=== PATIENT | female | born 1980 ===

== ENCOUNTER 2016-07-22 11:21 | Emergency (ER) | payer OTHER ==
[2016-07-22 11:30] VITALS: BP 96/65; PULSE 69; RESP 16; TEMP 98; O2SAT 100
[2016-07-22 11:31] VITALS: BMI 21.1
--- NOTE | 2016-07-22 12:10 | ED PDOC ---
Upper Extremity Pain/Injury Time Seen by Provider: 07/22/16 11:36 Chief Complaint (Nursing): Upper Extremity Problem/Injury History Per: Patient (presents for treatment of pain along with intermittent numbness and tingling of LUE. Patient has had a recent MRI of the c-spine that reportedly shows herniated disc(s). Patient states that a pain medicine that was given by Dr. Carty is not helping. She also states that she has seen a specialist and that she was told that she needed to have surgery done.), Family History/Exam Limitations: no limitations Onset/Duration Of Symptoms: Gradual Current Symptoms Are (Timing): Still Present Quality: "Pain" Severity: Moderate Past Medical History Reviewed: Historical Data, Nursing Documentation, Vital Signs Vital Signs: Last Vital Signs Temp 98.0 F 07/22/16 11:28 Pulse 69 07/22/16 11:28 Resp 16 07/22/16 11:28 BP 96/65 L 07/22/16 11:28 Pulse Ox 100 07/22/16 11:28 - Medical History PMH: No Chronic Diseases - Surgical History Surgical History: No Surg Hx - Family History Family History: States: No Known Family Hx - Living Arrangements Living Arrangements: With Family - Social History Current smoker - smoking cessation education provided: No - Home Medications Home Medications: Ambulatory Orders Medication Instructions Recorded traMADol [Ultram] 50 mg PO QID #10 tab 07/22/16 - Allergies Allergies/Adverse Reactions: Allergies Allergy/AdvReac Type Severity Reaction Status Date / Time No Known Allergies Allergy Verified 07/22/16 11:48 Review of Systems ROS Statement: Except As Marked, All Systems Reviewed And Found Negative Constitutional: Negative for: Fever, Chills Neurological: Positive for: Numbness (and tingling in the LUE intermittently) Physical Exam - Reviewed Nursing Documentation Reviewed: Yes Vital Signs Reviewed: Yes - Physical Exam Appears: Positive for: Well, Non-toxic, No Acute Distress Head Exam: Positive for: ATRAUMATIC, NORMAL INSPECTION, NORMOCEPHALIC Skin: Positive for: Normal Color, Warm, DRY Eye Exam: Positive for: Normal appearance, EOMI ENT: Positive for: Normal ENT Inspection Neck: Positive for: Normal, Painless ROM Cardiovascular/Chest: Positive for: Regular Rate, Rhythm Respiratory: Positive for: CNT, Normal Breath Sounds Gastrointestinal/Abdominal: Positive for: Normal Exam, Bowel Sounds, Soft Back: Positive for: Normal Inspection Extremity: Positive for: Normal ROM Neurologic/Psych: Positive for: Alert, Oriented - Laboratory Results Result Diagrams: 07/22/16 12:11 07/22/16 12:11 - ECG O2 Sat by Pulse Oximetry: 100 Medical Decision Making Medical Decision Making: Case d/w PMD Dr. Carty. He says he wants her to go to his office within the next 2 days. Disposition - Clinical Impression Clinical Impression: Cervical radicular pain - Patient ED Disposition Is Patient to be Admitted: No Doctor Will See Patient In The: Office Counseled Patient/Family Regarding: Diagnosis, Need For Followup - Disposition Referrals: Efe Carty MD [Family Provider] - Disposition: Routine/Home Disposition Time: 15:04 Condition: IMPROVED Prescriptions: traMADol [Ultram] 50 mg PO QID #10 tab Instructions: Cervical Radiculopathy (ED) Print Language: [place] - POA Present On Arrival: None
[2016-07-22 12:30] LABS: BASO % 0.3 % (0.0-2.0); EOS # 0.1 K/uL (0.0-0.7); EOS % 2.8 % (0.0-4.0); HEMATOCRIT 38.1 % (34.0-47.0); LYMPH # 2.1 K/uL (1.0-4.3); LYMPH % 39.5 % (20.0-40.0); MEAN CELL VOLUME 86.7 fl (81.0-99.0); MEAN CORPUSCULAR HEMOGLOBIN 29.3 pg (27.0-31.0); MEAN CORPUSCULAR HGB CONC 33.8 g/dL (33.0-37.0); MEAN PLATELET VOLUME 7.3 fl (7.2-11.7); MONO # 0.5 K/uL (0.0-0.8); MONO % 8.7 % (0.0-10.0); NEUT # 2.6 K/uL (1.8-7.0); NEUT % 48.7 % (50.0-75.0); NRBC % 0.2 % (0.0-0.0); RED CELL DISTRIBUTION WIDTH 13.8 % (11.5-14.5); WHITE BLOOD COUNT 5.3 K/uL (4.8-10.8)
[2016-07-22 12:38] LABS: BLOOD UREA NITROGEN 12 mg/dl (7-17); CALCIUM 9.3 mg/dL (8.4-10.2); CARBON DIOXIDE 24 mmol/L (22-30); CHLORIDE 107 mmol/L (98-107); GFR AFRICAN-AMERICAN > 60; GLUCOSE,RANDOM 89 mg/dL (65-105); POTASSIUM 4.1 MMOL/L (3.6-5.0); SODIUM 138 mmol/l (132-148)
== END 2016-07-22 15:27 | disposition home or self-care (01) ==
LOC: H.ER 11:21
DX: M54.12 Radiculopathy, cervical region (principal); R20.2 Paresthesia of skin

== ENCOUNTER 2016-07-24 10:25 | Inpatient (IN) | payer OTHER ==
[2016-07-24 10:32] VITALS: BMI 19.2
--- NOTE | 2016-07-24 10:58 | ED PDOC ---
HPI: General Adult Time Seen by Provider: 07/24/16 10:57 Chief Complaint (Nursing): Upper Extremity Problem/Injury Chief Complaint (Provider): neck pain History Per: Patient Additional Complaint(s): 28-year-old female presents to emergency department for evaluation of neck pain that radiates down her left arm ongoing for several weeks. Patient is under the care of Dr. White and Dr. Carty for this issue. Patient has been taking tramadol which has helped only somewhat with pain. She states she had recent MRI of cervical spine that shows cervical herniated discs. Patient denies any associated chest pain, SOB or GIRALDO. Past Medical History Reviewed: Historical Data, Nursing Documentation, Vital Signs Vital Signs: Last Vital Signs Temp 97 F L 07/24/16 11:37 Pulse 62 07/24/16 11:37 Resp BP 90/62 L 07/24/16 11:37 Pulse Ox 100 07/24/16 14:33 - Medical History Other PMH: cervical herniated discs - Surgical History Other surgeries: breast implants - Family History Family History: States: No Known Family Hx - Living Arrangements Living Arrangements: With Family - Social History Current smoker - smoking cessation education provided: No Alcohol: None Drugs: Denies - Home Medications Home Medications: Ambulatory Orders Medication Instructions Recorded traMADol [Ultram] 50 mg PO QID #10 tab 07/22/16 - Allergies Allergies/Adverse Reactions: Allergies Allergy/AdvReac Type Severity Reaction Status Date / Time No Known Allergies Allergy Verified 07/22/16 11:48 Review of Systems ROS Statement: Except As Marked, All Systems Reviewed And Found Negative Constitutional: Negative for: Fever Cardiovascular: Negative for: Chest Pain Gastrointestinal: Negative for: Vomiting Musculoskeletal: Positive for: Neck Pain (radiating to left arm ) Physical Exam - Reviewed Nursing Documentation Reviewed: Yes Vital Signs Reviewed: Yes - Physical Exam Appears: Positive for: Well, Non-toxic, No Acute Distress Skin: Negative for: Rash Eye Exam: Positive for: Normal appearance, EOMI, PERRL Neck: Positive for: Pain On Movement Of Neck (Mild tenderness left paraspinal region, no midline tenderness or step-off) Cardiovascular/Chest: Positive for: Regular Rate, Rhythm Respiratory: Positive for: Normal Breath Sounds Gastrointestinal/Abdominal: Positive for: Soft. Negative for: Tenderness, Distended, Guarding, Rebound Back: Negative for: Vertebral Tenderness Neurologic/Psych: Positive for: Alert, Oriented, Gait (steady) - Laboratory Results Result Diagrams: 07/24/16 11:43 07/24/16 11:43 Urine POC: Negative - ECG Interpretation Of ECG: Sinus bradycardia 58 bpm, no acute finding, reviewed by PA and ED attending O2 Sat by Pulse Oximetry: 100 Pulse Ox Interpretation: Normal - Other Rad bedside chest X-Ray: Interpreted by Me, Viewed By Me X-Ray Interpretation: no acute finding Medical Decision Making Medical Decision Makin36 year old with neck pain radiating to left arm pain Plan: Case was d/w Dr. White who states to admit patient to Dr. Carty's service. CBC CMP PT/PTT Type and Screen Urine test CXR EKG IVF PMD, Dr Carty made aware and states to admit patient to his service. Patient is aware of and agrees with admission. Disposition - Clinical Impression Clinical Impression: Cervical radiculopathy, Intractable pain - Patient ED Disposition Is Patient to be Admitted: Yes - Disposition Disposition Time: 11:17 Condition: FAIR - Pt Status Changed To: Hospital Disposition Of: Inpatient - Admit Certification Admit to Inpatient:: After my assessment, the patient will require hospitalization for at least two midnights. This is because of the severity of symptoms shown, intensity of services needed, and/or the medical risk in this patient being treated as an outpatient. - POA Present On Arrival: None Results - Lab Results Lab Results: 07/24/16 07/24/16 07/24/16 11:43 11:43 11:43 WBC RBC Hgb Hct MCV MCH MCHC RDW Plt Count MPV Neut % (Auto) Lymph % (Auto) Harper % (Auto) Eos % (Auto) Baso % (Auto) Neut # Lymph # Harper # Eos # Baso # PT 10.5 INR 1.01 APTT 28.1 Sodium 140 Potassium 4.2 Chloride 104 Carbon Dioxide 26 Anion Gap 14 BUN 13 Creatinine 0.6 L Est GFR ( Amer) > 60 Est GFR (Non-Af Amer) > 60 Random Glucose 81 Calcium 9.6 Total Bilirubin 0.4 AST 23 ALT 35 Alkaline Phosphatase 43 Total Protein 7.2 Albumin 4.6 Globulin 2.6 Albumin/Globulin Ratio 1.7 Blood Type O POSITIVE Antibody Screen Negative BBK History Checked No verified bt 07/24/16 11:43 WBC 6.4 RBC 4.64 Hgb 13.6 Hct 40.2 MCV 86.7 MCH 29.4 MCHC 33.9 RDW 13.9 Plt Count 249 MPV 7.4 Neut % (Auto) 61.1 Lymph % (Auto) 30.2 Harper % (Auto) 6.4 Eos % (Auto) 2.0 Baso % (Auto) 0.3 Neut # 3.9 Lymph # 1.9 Harper # 0.4 Eos # 0.1 Baso # 0.0 PT INR APTT Sodium Potassium Chloride Carbon Dioxide Anion Gap BUN Creatinine Est GFR ( Amer) Est GFR (Non-Af Amer) Random Glucose Calcium Total Bilirubin AST ALT Alkaline Phosphatase Total Protein Albumin Globulin Albumin/Globulin Ratio Blood Type Antibody Screen BBK History Checked
[2016-07-24] MEDS ORDERED: Sodium Chloride 0.9% 1,000 ML IV STA (11:08)
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
[2016-07-24 11:48] LABS: BASO % 0.3 % (0.0-2.0); EOS # 0.1 K/uL (0.0-0.7); HEMATOCRIT 40.2 % (34.0-47.0); LYMPH # 1.9 K/uL (1.0-4.3); LYMPH % 30.2 % (20.0-40.0); MEAN CELL VOLUME 86.7 fl (81.0-99.0); MEAN CORPUSCULAR HEMOGLOBIN 29.4 pg (27.0-31.0); MEAN CORPUSCULAR HGB CONC 33.9 g/dL (33.0-37.0); MEAN PLATELET VOLUME 7.4 fl (7.2-11.7); MONO # 0.4 K/uL (0.0-0.8); MONO % 6.4 % (0.0-10.0); NEUT # 3.9 K/uL (1.8-7.0); NEUT % 61.1 % (50.0-75.0); NRBC % 0.1 % (0.0-0.0); RED CELL DISTRIBUTION WIDTH 13.9 % (11.5-14.5); WHITE BLOOD COUNT 6.4 K/uL (4.8-10.8)
[2016-07-24 11:55] LABS: CHLORIDE 104 mmol/L (98-107); POTASSIUM 4.2 MMOL/L (3.6-5.0); SODIUM 140 mmol/l (132-148)
[2016-07-24 11:57] LABS: BILIRUBIN,TOTAL 0.4 mg/dl (0.2-1.3); GFR AFRICAN-AMERICAN > 60
[2016-07-24 11:58] LABS: ALB/GLOB RATIO 1.7 (1.0-2.1); ALKALINE PHOSPHATASE 43 U/L (38-126); ALT/SGPT 35 U/L (9-52); AST/SGOT 23 U/L (14-36); BLOOD UREA NITROGEN 13 mg/dl (7-17); CARBON DIOXIDE 26 mmol/L (22-30); GLUCOSE,RANDOM 81 mg/dL (65-105); TOTAL PROTEIN 7.2 G/DL (6.3-8.2)
[2016-07-24 11:59] LABS: CALCIUM 9.6 mg/dL (8.4-10.2)
[2016-07-24 12:18] LABS: PARTIAL THROMBOPLASTIN TIME 28.1 SECONDS (23.3-32.5)
--- NOTE | 2016-07-24 12:38 | RAD ---
HISTORY: admit COMPARISON: No prior. FINDINGS: LUNGS: No active pulmonary disease. PLEURA: No significant pleural effusion identified, no pneumothorax apparent. CARDIOVASCULAR: Normal. OSSEOUS STRUCTURES: No acute fractures. Mild side bending versus minimal levoscoliosis centered in the upper thoracic region. VISUALIZED UPPER ABDOMEN: Normal. OTHER FINDINGS: None. IMPRESSION: No active disease.
[2016-07-25 06:58] LABS: HEMATOCRIT 37.8 % (34.0-47.0); MEAN CELL VOLUME 86.3 fl (81.0-99.0); MEAN CORPUSCULAR HEMOGLOBIN 29.5 pg (27.0-31.0); MEAN CORPUSCULAR HGB CONC 34.2 g/dL (33.0-37.0); RED CELL DISTRIBUTION WIDTH 13.9 % (11.5-14.5); WHITE BLOOD COUNT 5.6 K/uL (4.8-10.8)
[2016-07-25 07:14] LABS: BLOOD UREA NITROGEN 12 mg/dl (7-17); CALCIUM 9.2 mg/dL (8.4-10.2); CARBON DIOXIDE 26 mmol/L (22-30); CHLORIDE 106 mmol/L (98-107); GFR AFRICAN-AMERICAN > 60; GLUCOSE,RANDOM 89 mg/dL (65-105); POTASSIUM 4.2 MMOL/L (3.6-5.0); SODIUM 139 mmol/l (132-148)
--- NOTE | 2016-07-25 07:29 | CP.PCM.CON ---
History of Present Illness - History of Present Illness History of Present Illness: Pt admitted to ER with intractable pain, asked to see pt who is a 36 yo left hand dominant female c/o longstanding hx of neckpain x many years worsening over past year,radiating to left arm with paresthesias x 3 mos,drops objects occasionally,decreased bat person,seen by PMD outpt imaging showing multi level cervical spondylosis worse at C-7 and HNP,severe spinal cord compression, images reviewed by Dr. White,surgical options discussed with pt,no relief with prescribed meds and conservative tx,denies trauma,fall or LE symptoms. Review of Systems - Review of Systems Systems not reviewed;Unavailable: Acuity of Condition - EENT Additional comments: Gerd (no meds),occasional dysphagia - Neurological Neurological: As Per HPI Past Patient History - Infectious Disease Hx of Infectious Diseases: None - Tetanus Immunizations Tetanus Immunization: Unknown - Past Medical History & Family History Past Medical History?: Yes - Past Social History Smoking Status: Never Smoked Chewing Tobacco Use: No Cigar Use: No Occupation: Manager [place] Alcohol: None Drugs: Denies Home Situation {Lives}: With Family Domestic Violence: Negative - CARDIAC Hx Cardiac Disorders: No Hx Angina: No Hx Atrial Fibrillation: No Hx Cardia Arrhythmia: No Hx Circulatory Problems: No Hx Congestive Heart Failure: No Hx Heart Attack: No Hx Heart Murmur: No Hx Heart Transplant: No Hx Hypercholesterolemia: No Hx Hypertension: No Hx Hypotension: Yes Hx Internal Defibrillator: No Hx Mitral Valve Prolapse: No Hx Pacemaker: No Hx Peripheral Edema: No Hx Peripheral Vascular Disease: No - PULMONARY Hx Respiratory Disorders: No Hx Asthma: No Hx Bronchitis: No Hx Chronic Obstructive Pulmonary Disease (COPD): No Hx Emphysema: No Hx Lung Cancer: No Hx Pneumonia: No Hx Pulmonary Edema: No Hx Pulmonary Embolism: No Hx Respiratory Aspiration: No Hx Respiratory Tract Infection: No Hx Sleep Apnea: No Hx Tuberculosis: No - NEUROLOGICAL Hx Neurological Disorder: No Hx Alzheimer's Disease: No HX Cerebrovascular Accident: No Hx Dementia: No Hx Dizziness: No Hx Meningitis: No Hx Migraine: No Hx Multiple Sclerosis: No Hx Paralysis: No Hx Parkinson's Disease: No Hx Seizures: No Hx Syncope: No Hx Transient Ischemic Attacks (TIA): No Hx Vertigo: No - HEENT Hx HEENT Problems: No Hx Blind: No Hx Cataracts: No Hx Deafness: No Hx Difficulty Chewing: No Hx Epistaxis: No Hx Glaucoma: No Hx Macular Degeneration: No Hx Sinusitis: No - RENAL Hx Chronic Kidney Disease: No Hx Dialysis: No Hx Kidney Stones: No Hx Neurogenic Bladder: No Hx Pyelonephritis: No Hx Renal (Kidney) Cancer: No Hx Renal Failure: No - ENDOCRINE/METABOLIC Hx Endocrine Disorders: No Hx Adrenal Cancer: No Hx Diabetes Insipidus: No Hx Diabetes Mellitus Type 1: No Hx Diabetes Mellitus Type 2: No Hx Hyperthyroidism: No Hx Hypothyroidism: No Hx Systemic Lupus Erythematosus: No - HEMATOLOGICAL/ONCOLOGICAL Hx Blood Disorders: No Hx AIDS: No Hx Anemia: No Hx Blood Transfusions: No Hx Blood Transfusion Reaction: No Hx Bruising: No Hx Cancer: No Hx Chemotherapy: No Hx Cirrhosis: No Hx Gum Bleeding: No Hx Hemophilia: No Hx Hepatitis A: No Hx Hepatitis B: No Hx Hepatitis C: No Hx Human Immunodeficiency Virus (HIV): No Hx Leukemia: No Hx Metastesis: No Hx Shingles: No Hx Sickle Cell Disease: No Hx Unexplained Bleeding: No Hx von Willebrand's Disease: No - INTEGUMENTARY Hx Dermatological Problems: No Hx Basil Cell: No Hx Becker: No Hx Cellulitis: No Hx Eczema: No Hx Melanoma: No Hx Psoriasis: No Hx Squamous Cell: No - MUSCULOSKELETAL/RHEUMATOLOGICAL Hx Musculoskeletal Disorders: Yes Hx Arthritis: No Hx Back Pain: No Hx Degenerative Joint Disease: No Hx Falls: No Hx Fractures: No Hx Gout: No Hx Herniated Disk: Yes (cervical) Hx Myasthenia Gravis: No Hx Osteoarthritis: No Hx Osteomyelitis: No Hx Osteoporosis: No Hx Rhabdomyolysis: No Hx Rheumatoid Arthritis: No Hx Spinal Stenosis: No Hx Unsteady Gait: No Other/Comment: neck pain - GASTROINTESTINAL Hx Gastrointestinal Disorders: No Hx Bowel Surgery: No Hx Clostridium Difficile: No Hx Colitis: No Hx Colostomy: No Hx Constipation: No Hx Crohn's Disease: No Hx Diarrhea: No Hx Diverticulitis: No Hx Esophageal Varices: No Hx Fatty Liver Disease: No Hx Gall Bladder Disease: No Hx Gastritis: No Hx Gastroesophageal Reflux: No Hx Hemorrhoids: No Hx Ileostomy: No Hx Irritable Bowel: No Hx Liver Failure: No Hx Nausea: No Hx Pancreatitis: No HX Swallowing Problems: No Hx Ulcer: No Hx Vomiting: No - GENITOURINARY/GYNECOLOGICAL Hx Genitourinary Disorders: No Hx Bladder Cancer: No Hx Bladder Stone: No Hx Cervical Cancer: No Hx Hematuria: No Hx Incontinence: No Hx Ovarian Cancer: No Hx Postmenopausal Bleeding: No Hx Reproductive Disorders: No Hx Sexually Transmitted Disorders: No Hx Uterine Cancer: No Hx Urinary Tract Infection: No - PSYCHIATRIC Hx Psychophysiologic Disorder: No Hx Anxiety: No Hx Bipolar Disorder: No Hx Depression: No Hx Emotional Abuse: No Hx Hallucinations: No Hx Panic Symptoms: No Hx Paranoia: No Hx Post Traumatic Stress Disorder: No Hx Psychosis: No Hx Physical Abuse: No Hx Schizophrenia: No Hx Sexual Abuse: No Hx Substance Use: No - SURGICAL HISTORY Hx Surgeries: Yes Hx Abdominal Aortic Aneurysm Repair: No Hx Amputation: No Hx Angiogram: No Hx Angioplasty: No Hx Appendectomy: No Hx Arteriovenous Shunt: No Hx Arthroscopy: No Hx Bile Duct Stent: No Hx Breast Biopsy: No Hx Cataract Extraction: No Hx Cardiac Catheterization: No Hx Carotid Endarterectomy: No Hx Section: No Hx Cholecystectomy: No Hx Coronary Artery Bypass Graft: No Hx Coronary Stent: No Hx Dilation and Curettage: No Hx Eye Surgery: No Hx Femoral-Popliteal Bypass Graft: No Hx Gastric Bypass Surgery: No Hx Herniorrhaphy: No Hx Hysterectomy: No Hx Joint Replacement: No Hx Kidney Transplant: No Hx Liver Transplant: No Hx Mastectomy: No Hx Musculoskeletal Surgery: No Hx Open Heart Surgery: No Hx Open Reduction Internal Fixation: No Hx Orthopedic Surgery: No Hx Parathyroidectomy: No Hx Penile Implant: No Hx Pulmonary Surgery: No Hx Splenectomy: No Hx Thyroidectomy: No Hx Tonsillectomy: No Hx Tubal Ligation: No Hx Valve Replacement: No Hx Vascular Surgery: No Hx Vascular Access Device: No Other/Comment: breast augmentation - ANESTHESIA Hx Anesthesia: Yes Hx Anesthesia Reactions: No Hx Malignant Hyperthermia: No Has any member of the family had a problem w/ anesthesia?: No Meds Allergies/Adverse Reactions: Allergies Allergy/AdvReac Type Severity Reaction Status Date / Time No Known Allergies Allergy Verified 07/22/16 11:48 - Medications Medications: Current Medications Morphine Sulfate (Morphine) 2 mg IVP Q4 PRN PRN Reason: Pain, moderate (4-7) Morphine Sulfate (Morphine) 4 mg IVP Q4 PRN PRN Reason: Pain, moderate (4-7) Physical Exam - Constitutional Appears: Well, Non-toxic, No Acute Distress - Head Exam Head Exam: ATRAUMATIC, NORMAL INSPECTION, NORMOCEPHALIC - Eye Exam Eye Exam: EOMI, Normal appearance, PERRL Pupil Exam: NORMAL ACCOMODATION - ENT Exam ENT Exam: Mucous Membranes Moist, Normal Exam - Neck Exam Neck exam: Positive for: Tenderness - Respiratory Exam Respiratory Exam: Clear to Auscultation Bilateral, NORMAL BREATHING PATTERN - Cardiovascular Exam Cardiovascular Exam: REGULAR RHYTHM, +S1, +S2 - GI/Abdominal Exam GI & Abdominal Exam: Normal Bowel Sounds, Soft - Rectal Exam Rectal Exam: Deferred - Extremities Exam Extremities exam: Positive for: normal inspection, pedal pulses present - Back Exam Back exam: NORMAL INSPECTION - Neurological Exam Neurological exam: Alert, Oriented x3 Additional comments: POWELL x 4 antigravity with good strength,decreased sensation to left C5-8 dermatomes,decreased left bat person,+ 2 DTR's - Psychiatric Exam Psychiatric exam: Normal Affect, Normal Mood - Skin Skin Exam: Dry, Intact, Normal Color Results - Vital Signs Recent Vital Signs: Last Vital Signs Temp 98.2 F 07/24/16 23:58 Pulse 63 07/24/16 23:58 Resp 18 07/24/16 23:58 BP 93/59 L 07/24/16 23:58 Pulse Ox 98 07/24/16 23:58 - Labs Result Diagrams: 07/26/16 06:43 07/26/16 06:43 Labs: Laboratory Results - last 24 hr 07/25/16 06:25 Sodium 139 Potassium 4.2 Chloride 106 Carbon Dioxide 26 Anion Gap 11 BUN 12 Creatinine 0.7 Est GFR ( Amer) > 60 Est GFR (Non-Af Amer) > 60 Random Glucose 89 Calcium 9.2 - Impressions Impression: MRI results reviewed by Dr. White Assessment & Plan - Assessment and Plan (Free Text) Assessment: 36 yo female with cervical spondylosis, HNP C6-7 with severe spinal stenosis, decreased cord signal/LUE radiculapathy and myelopathy Plan: after reviewing images ,surgical and non surgical options discussed with pt, since she has failed conservative treatment,ADL's affected,willing to proceed with a proposed ACDF C6-[address] White,risks and benefits explained to pt, expressed understanding and wishes to proceed.
[2016-07-25] MEDS ORDERED: Lactated Ringer's 1,000 ML IV ONE ×3 (07:40→11:10)
[2016-07-25] MEDS ORDERED: HEMOSTATIC MATRIX 10 ML DIS.NEEDLE TOP ONE ×2 (08:23→08:40)
--- NOTE | 2016-07-25 08:50 | CP.PCM.PN ---
Subjective - Date & Time of Evaluation Date of Evaluation: 07/25/16 Time of Evaluation: 08:50 - Subjective Subjective: evaluated with attending. s/p ACDF C6-C7, tolerated procedure. Denies numbness/ tingling in upper/lower extremities. BM in the AM prior to procedure. reports limited sensation in neck. Denies chest pain, SOB, abd pain. Objective - Vital Signs/Intake and Output Vital Signs (last 24 hours): Temp Pulse Resp BP Pulse Ox 98.2 F 63 18 93/59 L 98 07/24/16 23:58 07/24/16 23:58 07/24/16 23:58 07/24/16 23:58 07/24/16 23:58 - Medications Medications: Current Medications Morphine Sulfate (Morphine) 2 mg IVP Q4 PRN PRN Reason: Pain, moderate (4-7) Morphine Sulfate (Morphine) 4 mg IVP Q4 PRN PRN Reason: Pain, moderate (4-7) - Labs Labs: 07/25/16 06:25 07/25/16 06:25 PT 10.5 SECONDS (9.6-11.2) 07/24/16 11:43 INR 1.01 (0.92-1.08) 07/24/16 11:43 APTT 28.1 SECONDS (23.3-32.5) 07/24/16 11:43 - Constitutional Appears: Non-toxic, No Acute Distress - Head Exam Head Exam: NORMAL INSPECTION - Eye Exam Eye Exam: Normal appearance - ENT Exam ENT Exam: Mucous Membranes Moist - Neck Exam Neck Exam: Normal Inspection Additional comments: bandage and ARIANNA drain x1 - Respiratory Exam Respiratory Exam: Clear to Ausculation Bilateral - Cardiovascular Exam Cardiovascular Exam: REGULAR RHYTHM - GI/Abdominal Exam GI & Abdominal Exam: Soft, Normal Bowel Sounds - Extremities Exam Extremities Exam: Normal Inspection. absent: Pedal Edema - Neurological Exam Neurological Exam: Alert, Oriented x3 Additional comments: motor/sensation grossly intact Assessment and Plan (1) Cervical radiculopathy Assessment & Plan: -MRI reviewed by NS team: multi level cervical spondylosis worse at C-7 and HNP with spinal cord compression -s/p ACDF C6-C7 -pain control -abx per NS -PT/OT Status: Acute (2) DVT prophylaxis Assessment & Plan: SCDs Status: Acute
[2016-07-25] MEDS ORDERED: Thrombin Topical 5,000 IU Spray Kit ONE (09:12)
[2016-07-25] MEDS ORDERED: Absorbable Gelatin Sponge Size 12-7 ONE (09:12)
[2016-07-25] MEDS ORDERED: HYDROmorphone 0.5 mg/0.5 ml ISec IVP PRN (09:17)
[2016-07-25] MEDS ORDERED: Benzocaine/Menthol (Cepacol) Lozenge PO PRN (09:39)
[2016-07-25] MEDS: Lactated Ringer's 1,000 ML IV SCH (09:45)
[2016-07-25] MEDS ORDERED: HYDROmorphone 0.5 mg/0.5 ml ISec IVP ONE ×2 (09:50→10:07)
[2016-07-25] MEDS: Dexamethasone 4 MG in Sodium Chloride 0.9% 50 ML IVPB SCH ×3 (11:30→22:28)
--- NOTE | 2016-07-25 11:41 | CARD ---
APPROVED REPORT EKG Measurement Heart [id number] <Conclusion> Sinus bradycardia Otherwise normal ECG
--- NOTE | 2016-07-25 14:27 | RAD ---
PROCEDURE: Intraoperative Fluoroscopy. HISTORY: ACDF FINDINGS: Fluoroscopic assistance was provided for Marcellou. Approximately 8.9 seconds of fluoroscopy time utilized during this procedure. Radiation dose = 0.46 mGy Please refer to the operative report from Dr. White
--- NOTE | 2016-07-25 16:29 | OP ---
PROCEDURE DATE: 07/25/2016 PREOPERATIVE DIAGNOSIS: Cervical spondylosis with myelopathy. POSTOPERATIVE DIAGNOSIS: Cervical spondylosis with myelopathy. PROCEDURE: Partial vertebrectomy of C6 and C7, diskectomy of C6-C7, interbody fusion of C6-C7 with PEEK and bone, plating and instrumentation C6-C7 with an Amendia plate. Fluoroscopy has been used. Microscope has been used. SURGEON: Dr. White BARREL RIB MATTING MACHINE OPERATOR: Cassy Kerr. Cassy Kerr is a physician animal assistant. She helped me perform the surgery from the beginning to the end. DESCRIPTION OF PROCEDURE: The patient was brought to the operating room, administered general endotracheal anesthesia, placed in a supine position. Head was placed on a donut. Care was taken to protect all the pressure points. Right side of the neck was thoroughly prepped and draped in standard sterile manner after marking for skin incision for cervical vertebrectomy. After prepping and draping the area, horizontal skin incision in neck creases has been made. Bleeding skin areas have been controlled with bipolar cutter wet machine. After using a Bovie cutter wet machine, platysma has been cut, dissection has been carried out at trachea and esophagus medially, sternomastoid carried out laterally. Prevertebral fascia has been cauterized and cut. Identification of levels has been done with the help of fluoroscopy. Longus colli has been detached at attachment of vertebral bodies of C6-C7. Danek retractors have been applied. Rest of the operation carried out with microscopic magnification and illumination. PARTIAL VERTEBRECTOMY OF C6 AND C7, DISKECTOMY OF C6-C7: By using high-speed drill, the vertebral bodies of C6-C7 have been drilled. Drilling is continued posteriorly. Partial vertebrectomy including removal of the cartilage and plates and half of the vertebral body has been achieved and intermittent diskectomy has been performed by using a #11 blade, pituitary rongeurs and curettes up to the posterior longitudinal ligament and here, the osteophytes have been encountered. They have been drilled away and the posterior longitudinal ligament has been opened. Dura has been decompressed from side to side. INTERBODY FUSION OF C6-7 USING PEEK AND BONE: PEEK implant has been brought in , filled with the demineralized bone. It was gently tapped in the space created by the partial vertebrectomy of C6-C7. Position has been confirmed to be good. PLATING AND INSTRUMENTATION OF C6-C7 USING AN AMENDIA PLATE: An Amendia plate has been placed over C6-C7. By using 12 mm screw, it has been secured under fluoroscopy control. Position has been confirmed to be good. Hemostasis best achieved. Zuhair drain placed in the wound, brought out through separate stab incision. Platysma closed by 3-0 Vicryl. Skin has been closed with intradermal 3-0 Vicryl stitches. The patient tolerated procedure. After procedure, mobilized to the recovery room in stable neurologic condition. Reji White MD cc: [id number] TT: 07/25/2016 16:28:09 sn MTDD
[2016-07-25] MEDS: ceFAZolin 1 GM in Sodium Chloride 0.9% 100 ML IVPB SCH (20:59)
[2016-07-26] MEDS: Lactated Ringer's 1,000 ML IV SCH (00:41)
[2016-07-26] MEDS: Dexamethasone 4 MG in Sodium Chloride 0.9% 50 ML IVPB SCH (03:32)
[2016-07-26 07:08] LABS: BASO % 0.1 % (0.0-2.0); EOS % 0.1 % (0.0-4.0); HEMATOCRIT 36.8 % (34.0-47.0); LYMPH # 0.8 K/uL (1.0-4.3); MEAN CELL VOLUME 85.3 fl (81.0-99.0); MEAN CORPUSCULAR HEMOGLOBIN 29.5 pg (27.0-31.0); MEAN CORPUSCULAR HGB CONC 34.6 g/dL (33.0-37.0); MEAN PLATELET VOLUME 7.4 fl (7.2-11.7); MONO # 0.2 K/uL (0.0-0.8); MONO % 1.4 % (0.0-10.0); NEUT # 10.9 K/uL (1.8-7.0); NEUT % 91.4 % (50.0-75.0); PLATELET COUNT 263 K/uL (130-400); RED CELL DISTRIBUTION WIDTH 13.4 % (11.5-14.5); WHITE BLOOD COUNT 11.9 K/uL (4.8-10.8)
[2016-07-26 07:20] LABS: BLOOD UREA NITROGEN 10 mg/dl (7-17); CALCIUM 9.3 mg/dL (8.4-10.2); CARBON DIOXIDE 27 mmol/L (22-30); CHLORIDE 104 mmol/L (98-107); GFR AFRICAN-AMERICAN > 60; GLUCOSE,RANDOM 131 mg/dL (65-105); POTASSIUM 4.2 MMOL/L (3.6-5.0); SODIUM 137 mmol/l (132-148)
--- NOTE | 2016-07-26 07:26 | CP.PCM.PN ---
Subjective - Date & Time of Evaluation Date of Evaluation: 07/26/16 Time of Evaluation: 07:25 Objective - Vital Signs/Intake and Output Vital Signs (last 24 hours): Temp Pulse Resp BP Pulse Ox 98.2 F 67 19 97/64 L 100 07/26/16 05:00 07/26/16 05:00 07/26/16 05:00 07/26/16 05:00 07/26/16 05:00 Intake and Output: 07/26/16 07/26/16 06:59 18:59 Intake Total 1100 Output Total 20 Balance 1080 - Medications Medications: Current Medications Benzocaine/Menthol (Cepacol Sore Throat) 1 chi PO Q3 PRN PRN Reason: Sore Throat Last Admin: 07/26/16 00:40 Dose: 1 chi Cefazolin Sodium 1 gm/ Sodium (Chloride) 100 mls @ 100 mls/hr IVPB Q12 CRISTINA Last Admin: 07/25/16 20:59 Dose: 100 mls/hr Dexamethasone 4 mg/ Sodium (Chloride) 51 mls @ 102 mls/hr IVPB Q6 CRISTINA Last Admin: 07/26/16 03:32 Dose: 102 mls/hr Lactated Ringer's (Lactated Ringer's) 1,000 mls @ 75 mls/hr IV .[id number] CRISTINA Stop: 07/26/16 09:45 Last Admin: 07/26/16 00:41 Dose: 75 mls/hr Morphine Sulfate (Morphine) 2 mg IVP Q4 PRN PRN Reason: Pain, moderate (4-7) Last Admin: 07/26/16 00:44 Dose: 2 mg Morphine Sulfate (Morphine) 4 mg IVP Q4 PRN PRN Reason: Pain, severe (8-10) Last Admin: 07/26/16 06:41 Dose: 4 mg Ondansetron HCl (Zofran Inj) 4 mg IVP Q6 PRN PRN Reason: Nausea/Vomiting - Labs Labs: 07/26/16 06:43 07/26/16 06:43 PT 10.5 SECONDS (9.6-11.2) 07/24/16 11:43 INR 1.01 (0.92-1.08) 07/24/16 11:43 APTT 28.1 SECONDS (23.3-32.5) 07/24/16 11:43 - Constitutional Appears: Non-toxic, No Acute Distress - Head Exam Head Exam: NORMAL INSPECTION - Eye Exam Eye Exam: Normal appearance - ENT Exam ENT Exam: Mucous Membranes Moist - Neck Exam Neck Exam: Normal Inspection Additional comments: bandage CDI drain in place, minimal S/S drainage - Respiratory Exam Respiratory Exam: Clear to Ausculation Bilateral - Cardiovascular Exam Cardiovascular Exam: REGULAR RHYTHM - GI/Abdominal Exam GI & Abdominal Exam: Soft, Normal Bowel Sounds - Extremities Exam Extremities Exam: Normal Inspection. absent: Pedal Edema - Neurological Exam Neurological Exam: Alert, Oriented x3 - Skin Skin Exam: Dry, Warm Assessment and Plan (1) Cervical radiculopathy Status: Acute (2) DVT prophylaxis Status: Acute
[2016-07-26 08:17] VITALS: RESP 18
[2016-07-26] MEDS: ceFAZolin 1 GM in Sodium Chloride 0.9% 100 ML IVPB SCH (08:21)
[2016-07-26] MEDS ORDERED: Oxycodone/Acetaminophen 5/325 mg Tab PO PRN (09:07)
[2016-07-26] MEDS ORDERED: Lactulose 10 gm/15 ml Syrup PO PRN (09:09)
[2016-07-26] MEDS ORDERED: Pantoprazole 40 mg EC Tab PO SCH (09:15)
[2016-07-26 09:40] LABS: NEUTROPHIL 90 % (42-75); TOTAL CELLS COUNTED 100
[2016-07-26] MEDS ORDERED: Dexamethasone 4 MG in Sodium Chloride 0.9% 50 ML IVPB SCH ×2 (10:00→17:00)
--- NOTE | 2016-07-26 11:09 | CP.PCM.DIS ---
Provider - Provider Date of Admission: 07/24/16 12:48 Attending physician: Efe Carty MD Time Spent in preparation of Discharge (in minutes): 20 Diagnosis - Discharge Diagnosis (1) Cervical radiculopathy Status: Acute (2) DVT prophylaxis Status: Acute Hospital Course - Lab Results Lab Results: Most Recent Lab Values WBC 11.9 K/uL (4.8-10.8) H D 07/26/16 06:43 RBC 4.31 Mil/uL (3.80-5.20) 07/26/16 06:43 Hgb 12.7 g/dL (12.0-16.0) 07/26/16 06:43 Hct 36.8 % (34.0-47.0) 07/26/16 06:43 MCV 85.3 fl (81.0-99.0) 07/26/16 06:43 MCH 29.5 pg (27.0-31.0) 07/26/16 06:43 MCHC 34.6 g/dL (33.0-37.0) 07/26/16 06:43 RDW 13.4 % (11.5-14.5) 07/26/16 06:43 Plt Count 263 K/uL (130-400) 07/26/16 06:43 MPV 7.4 fl (7.2-11.7) 07/26/16 06:43 Neut % (Auto) 91.4 % (50.0-75.0) H 07/26/16 06:43 Lymph % (Auto) 7.0 % (20.0-40.0) L 07/26/16 06:43 [place] % (Auto) 1.4 % (0.0-10.0) 07/26/16 06:43 Eos % (Auto) 0.1 % (0.0-4.0) 07/26/16 06:43 Baso % (Auto) 0.1 % (0.0-2.0) 07/26/16 06:43 Neut # 10.9 K/uL (1.8-7.0) H 07/26/16 06:43 Lymph # 0.8 K/uL (1.0-4.3) L 07/26/16 06:43 [place] # 0.2 K/uL (0.0-0.8) 07/26/16 06:43 Eos # 0.0 K/uL (0.0-0.7) 07/26/16 06:43 Baso # 0.0 K/uL (0.0-0.2) 07/26/16 06:43 Neutrophils % (Manual) 90 % (42-75) H 07/26/16 06:43 Lymphocytes % (Manual) 8 % (20-50) L 07/26/16 06:43 Monocytes % (Manual) 2 % (0-10) 07/26/16 06:43 Platelet Estimate Normal (NORMAL) 07/26/16 06:43 RBC Morphology Normal (NORMAL) 07/26/16 06:43 PT 10.5 SECONDS (9.6-11.2) 07/24/16 11:43 INR 1.01 (0.92-1.08) 07/24/16 11:43 APTT 28.1 SECONDS (23.3-32.5) 07/24/16 11:43 Sodium 137 mmol/l (132-148) 07/26/16 06:43 Potassium 4.2 MMOL/L (3.6-5.0) 07/26/16 06:43 Chloride 104 mmol/L (98-107) 07/26/16 06:43 Carbon Dioxide 27 mmol/L (22-30) 07/26/16 06:43 Anion Gap 11 (10-20) 07/26/16 06:43 BUN 10 mg/dl (7-17) 07/26/16 06:43 Creatinine 0.6 mg/dL (0.7-1.2) L 07/26/16 06:43 Est GFR ( Amer) > 60 07/26/16 06:43 Est GFR (Non-Af Amer) > 60 07/26/16 06:43 Random Glucose 131 mg/dL (65-105) H 07/26/16 06:43 Calcium 9.3 mg/dL (8.4-10.2) 07/26/16 06:43 Total Bilirubin 0.4 mg/dl (0.2-1.3) 07/24/16 11:43 AST 23 U/L (14-36) 07/24/16 11:43 ALT 35 U/L (9-52) 07/24/16 11:43 Alkaline Phosphatase 43 U/L (38-126) 07/24/16 11:43 Total Protein 7.2 G/DL (6.3-8.2) 07/24/16 11:43 Albumin 4.6 g/dL (3.5-5.0) 07/24/16 11:43 Globulin 2.6 gm/dL (2.2-3.9) 07/24/16 11:43 Albumin/Globulin Ratio 1.7 (1.0-2.1) 07/24/16 11:43 Blood Type O POSITIVE 07/24/16 11:43 Blood Type Confirm O POSITIVE 07/24/16 12:17 Antibody Screen Negative 07/24/16 11:43 BBK History Checked No verified bt 07/24/16 11:43 - Hospital Course Hospital Course: 36yo F with PMHx neck pain admitted for intractable neck pain. recent MRI C/S showing multi level cervical spondylosis worse at C-7 and HNP with severe spinal cord compression. Neurosurgery Dr. White c/s with recommendation for ACDF. Tolerated procedure ACDF C6-C7 07/25/16. Discharge Exam - Head Exam Head Exam: ATRAUMATIC, NORMAL INSPECTION, NORMOCEPHALIC - Eye Exam Eye Exam: Normal appearance - ENT Exam ENT Exam: Mucous Membranes Moist - Neck Exam Neck exam: Normal Inspection Additional comments: Bandage CDI J drain with minimal S/S drainage (pulled after exam by ortho PA) - Respiratory Exam Respiratory Exam: NORMAL BREATHING PATTERN - Cardiovascular Exam Cardiovascular Exam: REGULAR RHYTHM - GI/Abdominal Exam GI & Abdominal Exam: Normal Bowel Sounds - Neurological Exam Neurological exam: Alert, Oriented x3 - Skin Skin Exam: Dry, Warm Discharge Plan - Discharge Medications Prescriptions: Cyclobenzaprine [Flexeril] 5 mg PO TID #21 tab Dexamethasone [Decadron] 4 mg PO Q8 #21 tab Docusate [Colace] 100 mg PO BID 7 Days oxyCODONE/Acetaminophen [Percocet 5/325 mg Tab] 1 tab PO Q4 PRN #24 tab PRN Reason: Pain, Moderate (4-7) Pantoprazole [Protonix EC Tab] 40 mg PO DAILY #14 ect - Follow Up Plan Condition: FAIR Disposition: HOME/ ROUTINE Additional Instructions: patient cleared for discharge to Home today by Rx for all meds provided pt. to F/u with in 1 week Referrals: Reji White MD [Staff Provider] -
[2016-07-26 12:01] VITALS: BP 102/66; PULSE 64; TEMP 98.3; O2SAT 99
== END 2016-07-26 15:24 | disposition home or self-care (01) | DRG 472 ==
LOC: H.ER 10:25 → H.ERHOLD 12:48 → H.MEDSURG1 18:31 → H.TEL 07-25 11:30
PROVIDERS: ADMIT Family Medicine; ATTEND Family Medicine
PROC: 0RG20A1 (ICD-10-PCS; 2016-07-25)
PROC: 0RB30ZZ Excision of Cervical Vertebral Disc, Open Approach (ICD-10-PCS; principal; 2016-07-25 07:45)
DX: M50.023 Cervical disc disorder at C6-C7 level with myelopathy (principal); M47.12 Other spondylosis with myelopathy, cervical region; K21.9 Gastro-esophageal reflux disease without esophagitis; M54.12 Radiculopathy, cervical region; Z98.82 Breast implant status

== ENCOUNTER 2016-08-04 12:05 | Emergency (ER) | payer OTHER ==
[2016-08-04 12:05] VITALS: BMI 19.2
[2016-08-04 12:09] VITALS: O2SAT 100
--- NOTE | 2016-08-04 12:31 | ED PDOC ---
HPI: Abdomen Time Seen by Provider: 08/04/16 12:30 Chief Complaint (Nursing): GI Problem Chief Complaint (Provider): constipation History Per: Patient Additional Complaint(s): Patient is status post neck surgery 10 days ago and presents to emergency department with abdominal pain and constipation for the past 10 days. Patient was seen on by primary doctor and started on Amitiza for the constipation. She was able to have a liquid bowel movement yesterday but still feels pain in abdomen and rectum. No fever or chills, no vomiting. Patient is tolerating liquids and solids. She is no longer taking narcotic pain medication and is only taking ibuprofen at this time. The last dose of Percocet she took was about 5 days ago. Past Medical History Reviewed: Historical Data, Nursing Documentation, Vital Signs Vital Signs: Last Vital Signs Temp 97.7 F 08/04/16 12:08 Pulse 87 08/04/16 12:08 Resp 18 08/04/16 12:08 BP 91/51 L 08/04/16 12:08 Pulse Ox 100 08/04/16 15:52 - Medical History PMH: No Chronic Diseases - Surgical History Other surgeries: neck surgery, breast implants - Family History Family History: States: No Known Family Hx - Living Arrangements Living Arrangements: With Family - Social History Current smoker - smoking cessation education provided: No Alcohol: None Drugs: Denies - Home Medications Home Medications: Ambulatory Orders Medication Instructions Recorded Cyclobenzaprine [Flexeril] 5 mg PO TID #21 tab 07/26/16 Dexamethasone [Decadron] 4 mg PO Q8 #21 tab 07/26/16 Docusate [Colace] 100 mg PO BID 7 Days 07/26/16 Pantoprazole [Protonix EC Tab] 40 mg PO DAILY #14 ect 07/26/16 oxyCODONE/Acetaminophen [Percocet 1 tab PO Q4 PRN #24 tab 07/26/16 5/325 mg Tab] - Allergies Allergies/Adverse Reactions: Allergies Allergy/AdvReac Type Severity Reaction Status Date / Time No Known Allergies Allergy Verified 07/22/16 11:48 Review of Systems ROS Statement: Except As Marked, All Systems Reviewed And Found Negative Constitutional: Negative for: Fever Cardiovascular: Negative for: Chest Pain Respiratory: Negative for: Cough Gastrointestinal: Positive for: Abdominal Pain, Constipation, Rectal Pain. Negative for: Nausea, Vomiting Physical Exam - Reviewed Nursing Documentation Reviewed: Yes Vital Signs Reviewed: Yes - Physical Exam Appears: Positive for: Well, Non-toxic, No Acute Distress Skin: Negative for: Pallor, Rash Eye Exam: Positive for: Normal appearance, EOMI, PERRL Cardiovascular/Chest: Positive for: Regular Rate, Rhythm Respiratory: Positive for: Normal Breath Sounds Gastrointestinal/Abdominal: Positive for: Soft, Tenderness (mild diffuse tenderness with no rebound or guarding) Back: Negative for: L CVA Tenderness, R CVA Tenderness Rectal: Positive for: Normal Exam, Rectal Tone Is: (normal), Other (stool noted in rectal vault) Neurologic/Psych: Positive for: Alert, Oriented - Laboratory Results Result Diagrams: 08/04/16 12:50 08/04/16 12:50 - ECG O2 Sat by Pulse Oximetry: 100 Pulse Ox Interpretation: Normal Medical Decision Making Medical Decision Makin36 year old with post op constipation Plan: Fleets enema Mag citrate Labs IVF Patient was not able to have bowel movement despite administration of mag citrate and fleets enema. She still continues to complain of rectal pain. Manual disimpaction done at bedside by me. Patient felt some relief after disimpaction. She then went to bathroom and was able to have another small BM. Patient states that she feels better. Patient was instructed to drink plenty of fluids and take OTC enema, suppositories and miralax. Dietary instructions also given. Advised PMD follow up on Saturday. Disposition - Clinical Impression Clinical Impression: Constipation - Patient ED Disposition Is Patient to be Admitted: No Counseled Patient/Family Regarding: Studies Performed, Diagnosis, Need For Followup - Disposition Referrals: Efe Carty MD [Family Provider] - Disposition: Routine/Home Disposition Time: 16:15 Condition: IMPROVED Additional Instructions: Drink plenty of fluids. Take over the counter miralax for relief of constipation. Use over the counter suppositories or enemas as needed. Follow up Saturday with primary care doctor. Instructions: Constipation (ED), High Fiber Diet (ED) Results - Lab Results Lab Results: 08/04/16 08/04/16 08/04/16 12:50 12:50 12:50 WBC 17.6 H RBC 4.91 Hgb 14.2 Hct 43.1 MCV 87.7 D MCH 29.0 MCHC 33.0 RDW 13.9 Plt Count 298 MPV 7.0 L Neut % (Auto) 76.2 H Lymph % (Auto) 15.4 L [place] % (Auto) 7.6 Eos % (Auto) 0.7 Baso % (Auto) 0.1 Neut # 13.4 H Lymph # 2.7 [place] # 1.3 H Eos # 0.1 Baso # 0.0 Sodium 138 Potassium 3.4 L Chloride 100 Carbon Dioxide 27 Anion Gap 14 BUN 15 Creatinine 0.7 Est GFR ( Amer) > 60 Est GFR (Non-Af Amer) > 60 Random Glucose 84 Calcium 9.2 Total Bilirubin 0.9 AST 19 ALT 41 Alkaline Phosphatase 59 Total Protein 6.5 Albumin 4.1 Globulin 2.5 Albumin/Globulin Ratio 1.7 Urine Color Yellow Urine Clarity Clear Urine pH 6.0 Ur Specific [place] 1.013 Urine Protein Negative Urine Glucose (UA) Neg Urine Ketones Negative Urine Blood Negative Urine Nitrate Negative Urine Bilirubin Negative Urine Urobilinogen 0.2-1.0 Ur Leukocyte Esterase Trace Urine RBC (Auto) 2 Urine Microscopic WBC 3 Ur Squamous Epith Cells 1 Urine Bacteria Rare
[2016-08-04] MEDS ORDERED: Magnesium Citrate Oral SOL (300 ml) PO STA (12:59)
[2016-08-04] MEDS ORDERED: Sodium Chloride 0.9% 1,000 ML IV STA (12:59)
[2016-08-04] MEDS ORDERED: Magnesium Citrate Oral SOL (300 ml) ONE (13:09)
[2016-08-04 14:08] LABS: BASO % 0.1 % (0.0-2.0); EOS # 0.1 K/uL (0.0-0.7); EOS % 0.7 % (0.0-4.0); HEMATOCRIT 43.1 % (34.0-47.0); LYMPH # 2.7 K/uL (1.0-4.3); LYMPH % 15.4 % (20.0-40.0); MEAN CELL VOLUME 87.7 fl (81.0-99.0); MONO # 1.3 K/uL (0.0-0.8); MONO % 7.6 % (0.0-10.0); NEUT # 13.4 K/uL (1.8-7.0); NEUT % 76.2 % (50.0-75.0); NRBC % 0.1 % (0.0-0.0); RED CELL DISTRIBUTION WIDTH 13.9 % (11.5-14.5); WHITE BLOOD COUNT 17.6 K/uL (4.8-10.8)
[2016-08-04 14:16] LABS: RBC URINE 2 /hpf (0-3); URINE BACTERIA RARE (<OCC); URINE BILIRUBIN NEGATIVE (NEGATIVE); URINE BLOOD NEGATIVE (NEGATIVE); URINE COLOR YELLOW (YELLOW); URINE GLUCOSE (UA) NEG (Normal); URINE KETONE NEGATIVE (NEGATIVE); URINE LEUKOCYTE ESTERASE TRACE Leu/uL (Negative); URINE PROTEIN NEGATIVE (NEGATIVE); URINE UROBILINOGEN 0.2-1.0 mg/dL (0.2-1.0); WBC URINE 3 /hpf (0-5)
[2016-08-04 14:20] LABS: ALB/GLOB RATIO 1.7 (1.0-2.1); ALKALINE PHOSPHATASE 59 U/L (38-126); ALT/SGPT 41 U/L (9-52); AST/SGOT 19 U/L (14-36); BILIRUBIN,TOTAL 0.9 mg/dl (0.2-1.3); BLOOD UREA NITROGEN 15 mg/dl (7-17); CALCIUM 9.2 mg/dL (8.4-10.2); CARBON DIOXIDE 27 mmol/L (22-30); CHLORIDE 100 mmol/L (98-107); GFR AFRICAN-AMERICAN > 60; GLUCOSE,RANDOM 84 mg/dL (65-105); POTASSIUM 3.4 MMOL/L (3.6-5.0); SODIUM 138 mmol/l (132-148); TOTAL PROTEIN 6.5 G/DL (6.3-8.2)
[2016-08-04 16:44] VITALS: BP 110/58; PULSE 76; RESP 16; TEMP 97.4
== END 2016-08-04 16:54 | disposition home or self-care (01) ==
LOC: H.ER 12:05
DX: K59.00 Constipation, unspecified (principal)